=== PATIENT | female | born 1975 | race Caucasian/White ===

== ENCOUNTER 2024-09-28 07:05 | Emergency (ER) | payer MEDICAID ==
[~2024-09-28] VITALS: Ht 165.1 cm; Wt 70.0 kg
[2024-09-28 07:07] VITALS: O2SAT 100
[2024-09-28] MEDS ORDERED: ONDANSETRON HCL 4MG/2ML INJ IV STA (07:11)
[2024-09-28] MEDS ORDERED: KETOROLAC 30MG/ML VIAL IV STA (07:11)
[2024-09-28 08:33] LABS: CHLORIDE 109 mEq/L (98-107); POTASSIUM 4.5 mEq/L (3.5-5.1)
[2024-09-28 08:34] LABS: SODIUM 139 mEq/L (136-145)
[2024-09-28 08:35] LABS: CARBON DIOXIDE 27 mEq/L (21-32)
[2024-09-28 08:37] LABS: HCG SCREEN NEGATIVE
[2024-09-28 08:38] LABS: BASOPHILS % 0.4 % (0.0-2.0); EOSINOPHILS % 1.5 % (0.0-5.0); HEMATOCRIT. 37.3 % (36.0-48.0); HEMOGLOBIN. 12.5 g/dL (12.0-16.0); LYMPHOCYTES % 23.7 % (20.0-50.0); MEAN CORPUSCULAR HEMOGLOBIN 28.9 pg (28.0-32.0); MEAN CORPUSCULAR HGB CONC 33.4 g/dL (31.0-37.0); MEAN CORPUSCULAR VOLUME 86.4 fL (81.0-99.0); MONOCYTES % 5.7 % (2.0-8.0); NEUTROPHILS % 68.7 % (40.0-76.0); PLATELET 292 x1000/uL (130-400); RED BLOOD CELL COUNT 4.32 mill/uL (4.2-5.4); RED CELL DISTRIBUTION WIDTH 13.5 % (11.6-14.6); WHITE BLOOD COUNT 7.9 x1000/uL (4.5-11.0)
[2024-09-28 08:39] LABS: CREATININE 0.7 mg/dL (0.6-1.0)
[2024-09-28 08:40] LABS: GLUCOSE 97 mg/dL (70-105); UREA NITROGEN BLOOD 13 mg/dL (9-23)
[2024-09-28 08:44] LABS: TROPONIN I HIGH SENSITIVITY < 4 ng/L (3.0-34)
[2024-09-28] MEDS: ONDANSETRON HCL 4MG/2ML INJ IV NR (11:12)
[2024-09-28] MEDS: KETOROLAC 30MG/ML VIAL IV NR (11:12)
[2024-09-28] MEDS: SODIUM CHLORIDE 0.9% 1,000 ML IV ONE (11:48)
[2024-09-28 11:51] LABS: ALANINE AMINOTRANSFERASE 24 IU/L (10-49); ASPARTATE AMINOTRANSFERASE 24 IU/L (<34); BILIRUBIN TOTAL 0.3 mg/dL (0.1-1.0); PROTEIN TOTAL 6.8 g/dL (6.0-8.3)
[2024-09-28 11:53] LABS: BILIRUBIN DIRECT < 0.1 mg/dL (<=3.0)
[2024-09-28 12:31] VITALS: BP 116/55; PULSE 61; RESP 18; TEMP 36.61404; O2SAT 100
[2024-09-28] MEDS ORDERED: ONDANSETRON HCL 4MG/2ML INJ IV PRN (13:00)
[2024-09-28] MEDS ORDERED: IPRATROPIUM/ALBUTEROL 0.5-3(2.5)MG/3ML NEB HHN PRN (13:00)
[2024-09-28] MEDS ORDERED: ACETAMINOPHEN 325MG TABLET PO PRN ×2 (13:00)
[2024-09-28] MEDS ORDERED: CLONIDINE 0.1MG TABLET PO PRN (13:00)
[2024-09-28] MEDS ORDERED: DOCUSATE SODIUM 100MG CAPSULE PO PRN (13:00)
[2024-09-28] MEDS ORDERED: MAGNESIUM/ALUMINUM HYDROXIDE/SIMETHICONE 30ML UDC PO PRN (13:00)
[2024-09-28] MEDS ORDERED: GUAIFENESIN 200MG/10ML SUGAR FREE UDC PO PRN (13:00)
[2024-09-28] MEDS: PANTOPRAZOLE SODIUM 40 MG/VIAL IV SCH (14:29)
[2024-09-28 15:26] LABS: LDL CHOLESTEROL 123 mg/dL (5-100); TRIGLYCERIDE 124 mg/dL (0-150)
[2024-09-28 15:28] LABS: CHOLESTEROL 201 mg/dL (<200); CREATINE KINASE 52 IU/L (34-145); HDL CHOLESTEROL 46 mg/dL (>65)
[2024-09-28 15:30] LABS: T4 FREE 0.92 ng/dL (0.89-1.76)
[2024-09-28 15:31] LABS: THYROID STIMULATING HORMONE 1.24 uIU/mL (0.55-4.78)
== END 2024-09-28 15:34 | disposition left against medical advice (07) ==
LOC: ER 07:05 → CANBEDREQ 15:33 → ER 15:34
DX: R55 Syncope and collapse (principal); E78.5 Hyperlipidemia, unspecified; R10.9 Unspecified abdominal pain; Z90.49 Acquired absence of other specified parts of digestive tract
CPT/HCPCS: 80061; 80076; 80048; 82550; 84703; 84439; 83690; 83735; 84443; 85025; 84484; 36415; 71045; 70450; 74176; 93005; 96361; 96374; 96375; 99285; J1885; J2405; J2470; J7030; Z7610